=== PATIENT | male | born 1960 | race Caucasian/White ===

== ENCOUNTER → 2017-07-27 | Outpatient (CLI) | payer MEDICARE, MEDICAID ==
[~2017-07-27] MED LIST: CYMBALTA30 MG PO; LEVEMIR SUBQ; METHADONE HCL 110 M1 PO; NOVOLOG100 UNIT/1 SUBQ; OXYCODONE HCL15 MG PO; OXYCONTIN10 M1 PO; SPIRIVA18 MCG INH; TRESIBA FL100 UNIT/1 SUBQ; VALIUM5 MG PO; VENTOLIN HFA 1818 GM INH; VOLTAREN GEL 1100 G2 TOP
--- NOTE | 2017-07-29 09:35 | PAINCON ---
[address] [address] PAIN MANAGEMENT CONSULTATION Name: KIP GAITAN Room: [facility].#: [id number] Admission: 07/27/17 Attend Phys: Amie Calhoun Discharge: Date of : 58 Report #: [id number] THIS REPORT FOR: //name// CC: Iris Gr HISTORY OF PRESENT ILLNESS: The patient is a 56-year-old gentleman being treated for chronic abdominal pain requiring high risk complex medication management, history of lumbar radiculopathy, DJD right shoulder. Last seen in pain clinic on 06/01/2017, continued on methadone 10 mg q.i.d. and Voltaren gel topically for the right shoulder. Last urine drug screen on 01/19/2017 was positive for prescribed medications. He returns to pain clinic today. He continues to smoke and was counseled regarding same. BMI was below 20 at last visit (19.7). He has increased weight a little bit, BMI is now up to 20.1 (5 feet 8 inches, 130 pounds). Blood pressure is 99/62, pulse 93, respirations 18. Subjective pain score is 8 on a VAS, seems to be getting little bit worse, two discrete pains are right shoulder and left hip. Abdominal pain is unchanged. He uses a cane in his right hand, seems to have ongoing right shoulder and new diagnosis of recurrent left radicular pain. He has had back pain since 1979. PHYSICAL EXAMINATION: Shows positive straight leg raise on the left with decreased left leg extension and flexion strength. Right shoulder shows pain in the anterior aspect of the shoulder, range of motion both active and passive increases pain. Voluntary range of motion is limited. Strength is about 3-4/5, little stronger on the left side. We reviewed the fact that opiate medications are being used to provide analgesia adequate to support activities of daily living, not attempting to achieve a specific pain score on the 0-10 Visual Analog Scale. The current opiate medications are providing sufficient analgesia to allow the patient to participate in activities of daily living. The patient is not exhibiting any aberrant behavior suggestive of drug diversion. The patient is not having any adverse reactions to medications. The patient is not suffering from daytime somnolence or mental acuity changes. The patient is managing opiate-induced constipation with appropriate dhde-sxw-plccxid agents and dietary considerations. The patient was counseled on concern for caution with operating a motor vehicle while using opiate medications. A physical exam was performed and the patient's functional status was evaluated. All patients with back pain were advised against the bed rest greater than 4 days and were advised to return to normal activities. Pain score assessment was noted and the treatment plan was reviewed with the patient. All current medications, both prescribed and OTC were reviewed [place] [address] PAIN MANAGEMENT CONSULTATION Name: KIP GAITAN Room: [facility]#: [id number] Admission: 07/27/17 Attend Phys: Amie Calhoun Discharge: Date of : 58 Report #: [id number] electronic medical record. Tobacco screening was accomplished and smoking cessation was advised when indicated. BMI was noted and diet/exercise modification was recommended for all patients following outside normal parameters. I reviewed with the patient today their responsibilities to safeguard prescription medications, reviewed their responsibility to utilize medications only as prescribed by the physician. They are to seek and receive pain medications only from 1 physician group ( [facility]). They are to use 1 pharmacy and keep the clinic informed if they change pharmacies. Their responsibilities include making followup visits in a timely fashion and to avoid abrupt discontinuation of medication usage. Their responsibilities further include bringing their medications (bottles from the pharmacy with residual pills) to the visit for possible confirmation of pill counts and the patient understands it is their responsibility to submit to random drug screens to ensure both that the medications prescribed are present, and that no other controlled substances are present. All prescriptions provided today were generated electronically. ASSESSMENT: Chronic abdominal pain requiring high risk complex medication management. RECOMMENDATION: 1. Continue methadone 10 mg 4 times a day. Last urine drug screen on 01/19/2017 was positive for prescribed medication. Continue Voltaren gel topically for right shoulder. 2. X-ray of right shoulder today. 3. Symptomatic lumbar radiculopathy RECOMMENDATION: Lumbar epidural injection under fluoroscopy today. PROCEDURE: Lumbar epidural injection under fluoroscopy. PROCEDURE NOTE: After both written and informed consent to include risk of spinal cord damage, increased pain, weakness and dural puncture, the patient was taken to the fluoroscopy suite, placed in the prone position. After sterile prep and drape, a skin wheal with lidocaine was raised. A 22-gauge epidural Tuohy needle was inserted in the midline at L5-S1 with good loss to resistance. Negative aspiration for cerebrospinal fluid or blood was noted. Then 1 mL of Omnipaque under biplanar fluoroscopy showed good spread within the epidural space. This was followed with 80 mg of triamcinolone plus 1 mL of 1.5% preservative-free Xylocaine, 0.5 mL Xylocaine was [place] [address] PAIN MANAGEMENT CONSULTATION Name: KIP GAITAN Room: [facility]#: [id number] Admission: 07/27/17 Attend Phys: Amie Calhoun Discharge: Date of : 58 Report #: [id number] needle; it was removed. The patient was monitored for an appropriate period of time and discharged in good and stable condition. <ELECTRONICALLY SIGNED> By: Lance Gr DO 07/29/17 0935 [id number] [id number] Gr DO /nt
== END ==
LOC: M.PC 03:31 → M.RAD 03:31 → M.PC 09:50
DX: M54.16 Radiculopathy, lumbar region (principal); G89.29 Other chronic pain; R10.9 Unspecified abdominal pain; M19.011 Primary osteoarthritis, right shoulder; Z79.891 Long term (current) use of opiate analgesic; Z79.4 Long term (current) use of insulin

== ENCOUNTER → 2017-09-21 | Outpatient (CLI) | payer MEDICARE, MEDICAID ==
--- NOTE | 2017-09-26 07:21 | PAINCON ---
[facility] [address] [place] [address] PAIN MANAGEMENT CONSULTATION Name: KIP GAITAN [id number] Admission: 09/21/17 Attend Phys: Amie Calhoun Discharge: Date of : 58 Report #: [id number] THIS REPORT FOR: //name// CC: Iris Gr The patient is a 57-year-old gentleman typically treated for chronic abdominal pain, chronic pain syndrome requiring high risk complex medication management. Comorbidity includes DJD of right shoulder and lumbar radicular symptoms. The patient was last seen in the pain clinic 07/27/2017 and continued on methadone 10 mg q.i.d. The patient returns to the pain clinic today. The patient notes pain in the right shoulder continues somewhat, I did get an x-ray which was accomplished on 07/27/2017 and fortunately shows no significant osseous abnormality. Also has some lumbar radicular pain. Notes he has poor balance. He occasionally falls. We strongly encouraged the patient to use his cane on a more regular basis and in fact with poor balance and the patient falling despite using a cane, today I did prescribe for the patient a walker with a seat (rollator). The patient notes he can only walk about 20-25 feet before he has to sit down. He continued to smoke and was counseled regarding the same. PHYSICAL EXAMINATION: Does show significant weakness in the left leg, left anterior dorsalis (dorsiflexion) is about 2/5, all other muscles on the left side about 3/5 and right leg is slightly stronger at 3-4/5. Grossly positive straight leg raise at 30 degrees on the left. Pain with passive rotation of the hips bilaterally. Patellar and Achilles reflexes are diminished, but symmetric. Physical exam otherwise shows a cachectic 57-year-old gentleman, BMI is 19.9 kilograms per meter squared. Blood pressure 87/58, pulse 96 and respirations 16. Cranial nerves 2-12 are grossly intact. Pupils are pinpoint. Extraocular muscles are intact. No significant nystagmus is noted. Again moves cautiously. Gait is moderately antalgic. Diffuse tenderness across the back. No discrete trigger points are noted. Subjective pain score is 9 on a VAS. We reviewed the fact that opiate medications are being used to provide analgesia adequate to support activities of daily living, not attempting to achieve a specific pain score on the 0-10 Visual Analog Scale. The current opiate medications are providing sufficient analgesia to allow the patient to participate in activities of daily living. The patient is not exhibiting any aberrant behavior suggestive of drug diversion. The patient is not having any adverse reactions to medications. The patient is not suffering from daytime somnolence or mental acuity changes. The patient is managing opiate-induced constipation with appropriate tfwt-hwi-crdlckc agents and dietary considerations. The patient was counseled on concern for caution with operating a motor vehicle while using opiate medications. A physical exam was performed and the patient's [place] [address] PAIN MANAGEMENT CONSULTATION Name: KIP GAITAN Room: [facility]#: [id number] Admission: 09/21/17 Attend Phys: Amie Calhoun Discharge: Date of : 58 Report #: [id number] All patients with back pain were advised against the bed rest greater than 4 days and were advised to return to normal activities. Pain score assessment was noted and the treatment plan was reviewed with the patient. All current medications, both prescribed and OTC were reviewed and reconciled on the electronic medical record. Tobacco screening was accomplished and smoking cessation was advised when indicated. BMI was noted and diet/exercise modification was recommended for all patients following outside normal parameters. I reviewed with the patient today their responsibilities to safeguard prescription medications, reviewed their responsibility to utilize medications only as prescribed by the physician. They are to seek and receive pain medications only from 1 physician group ( [facility]). They are to use 1 pharmacy and keep the clinic informed if they change pharmacies. Their responsibilities include making followup visits in a timely fashion and to avoid abrupt discontinuation of medication usage. Their responsibilities further include bringing their medications (bottles from the pharmacy with residual pills) to the visit for possible confirmation of pill counts and the patient understands it is their responsibility to submit to random drug screens to ensure both that the medications prescribed are present, and that no other controlled substances are present. All prescriptions provided today were generated electronically. ASSESSMENT: Chronic axial back pain, chronic abdominal pain and lumbar radiculopathy requiring high risk complex medication management. RECOMMENDATION: 1. Discussion with the patient today about therapeutic options and recommend continued physical activity as able and increased ambulation. Again as noted above, I have taken the liberty of writing for a walker for the patient's use given neurogenic claudication and general debility as well as poor balance issues. 2. Continue baseline narcotic unchanged. 3. Nicotine cessation reviewed. 4. Opiate risk assessment noted, functional assessment reviewed. The patient's score is relatively low noting 15/70. He continues to be optimistic, but again he is showing some failing health. 5. Renew medication as noted above, we did renew the patient's opiate consent to treat contract today, it has been greater than a year since last contract was signed. Last random drug screen 01/19/2017 was positive for prescribed medications. Follow up in 2 months for reevaluation. <ELECTRONICALLY SIGNED> By: Lance Gr DO 09/26/17 0721 1321 [id number] Gr DO /nt
== END ==
LOC: M.PC 02:52
DX: G89.4 Chronic pain syndrome (principal); R10.9 Unspecified abdominal pain; M19.011 Primary osteoarthritis, right shoulder; M54.16 Radiculopathy, lumbar region; Z79.899 Other long term (current) drug therapy

== ENCOUNTER → 2017-11-16 | Outpatient (CLI) | payer MEDICARE, MEDICAID ==
--- NOTE | 2017-11-21 08:02 | PAINCON ---
[facility] [address] [place] [address] PAIN MANAGEMENT CONSULTATION Name: KIP GAITAN Room: [facility] [place].#: [id number] Admission: 11/16/17 Attend Phys: Amie Calhoun Discharge: Date of : 58 Report #: [id number] THIS REPORT FOR: //name// CC: Iris Gr The patient is a 57-year-old gentleman initially seen for chronic abdominal pain, chronic pain syndrome requiring complex medication management. Comorbidities include lumbar radiculopathy and right shoulder DJD requiring complex medication management. Last seen in pain clinic 09/21/2017. Counseled regarding smoking cessation and continued on methadone 10 mg 4 times a day. Last random drug screen 01/19/2017 is positive for prescribed medications. He returns to pain clinic today feeling that his medications are losing efficacy. States that the methadone at 40 mg a day (roughly 160 mEq of morphine a day) is only "relieving 35-40% of his pain." Rates his pain as 8 on a VAS. I had written for a rollator walker with chair in last visit. He did pick this up. States it is helpful, he can walk a little further, though curiously today he presents with only a cane. Physical exam shows a cachectic 57-year-old gentleman, BMI is 19.5 kilograms per meter squared. Blood pressure is low at 93/57, pulse 95, respiration is 16. Rises from the chair using armrest, modestly antalgic gait, diffuse tenderness across the low back, does not complain of much abdominal pain at this time. Lower extremity strength is diminished, but symmetric. Straight leg raise is negative. ASSESSMENT: Chronic axial back pain, history of lumbar radiculopathy and abdominal pain requiring complex medication management in a gentleman who continues to smoke and is showing opiate tolerance. RECOMMENDATIONS: Long discussion with the patient today about therapeutic option. I talked about opiate-induced hyperalgesia. Ultimately we elected to start weaning methadone over the next month. He is currently taking 40 mg a day. We will decrease to 30 mg (one 10 mg tablet 3 times a day) for 10 days, dropping then to 25 mg (one 10 mg tablet in the morning, half a tablet or 5 mg at noon and 10 mg at night for another 10 days). We will further drop to 20 mg a day, 10 mg in the morning and a half of a 10 mg tablet at noon and at bedtime for 10 days. I have taken the liberty of writing for 4-week release prescription, rotating back to methadone 10 mg 120 tablets, 1 tablet 3-4 times a day for pain. We will followup in 2 months to evaluate efficacy. We did evaluate efficacy of our opiate wean trial. We discussed smoking cessation at length. The patient asked for a prescription for Cymbalta, states that he had used this in the past and felt that it was helpful for quitting smoking. Unsure of the efficacy of Cymbalta and smoking, [place] [address] PAIN MANAGEMENT CONSULTATION Name: ARNIEKIP MAN Room: [facility]#: [id number] Admission: 11/16/17 Attend Phys: Amie Calhoun Discharge: Date of : 58 Report #: [id number] but I think it will be efficacious for his chronic pain and general anxiety. Started the patient on low dose Cymbalta 30 mg 1 a day, taken the liberty of writing for 30 tablets with 2 refills. Follow up in 2 months for reevaluation. Discharged in good and stable condition. <ELECTRONICALLY SIGNED> By: Lance Gr DO 11/21/17 0802 1453 1810Lance Gr DO /nt
== END ==
LOC: M.PC 01:03
DX: R10.9 Unspecified abdominal pain (principal); G89.29 Other chronic pain; M54.16 Radiculopathy, lumbar region; Z79.899 Other long term (current) drug therapy

== ENCOUNTER → 2018-01-18 | Outpatient (CLI) | payer MEDICARE, MEDICAID ==
--- NOTE | 2018-01-19 07:09 | PAINCON ---
[address] [address] PAIN MANAGEMENT CONSULTATION Name: ARNIEKIP Room: [facility].James.#: [id number] Admission: 01/18/18 Attend Phys: Amie Calhoun Discharge: Date of : 58 Report #: [id number] THIS REPORT FOR: //name// CC: Iris Gr The patient is a 57-year-old gentleman, prior seen for chronic abdominal pain, requiring complex medication management. Comorbidity includes nicotine habituation. Originally seen by myself on 07/28/2016. The patient was taking high dose oxycodone (OxyContin 60 mg b.i.d. with oxycodone 15 mg 4 a day, 180 mg of oxycodone roughly equivalent to 270 mg of morphine equivalent). We rotated to methadone and have tried to wean over time. He has been relatively stable on methadone 10 mg 4 a day where that this does equate to 160 mg of morphine equivalent, which does put him by definition in the high risk category, though he is down some 40% overall. He returns to pain clinic today, seen in the company of his who is supportive. We had a prolonged visit from 9:00 a.m. to 9:30, greater than 50% of 25+ minute visit was spent counseling the patient. He has weaned down from 2 packs of cigarettes a day to 1 pack a day, though I had instructed him at each visit over the years that he needs to quit smoking. He has been using Chantix now for 19 days. I tried weaning methadone at last visit from 4 a day to 3-1/2, down to 3 a day. The patient notes he had increased pain with decreased functional status. Rates his pain is 8-9 on a VAS at present, having been back to methadone 10 mg 4 a day for the past month. He does use Voltaren gel topically and Cymbalta 30 mg once a day. The patient notes the pain is in the right shoulder, left hip and low back. His abdominal pain is actually fairly benign at this time. He has had chronic right shoulder pain and some axial back pain over time. PHYSICAL EXAMINATION: Relatively unchanged as well, cachectic 57-year-old gentleman, 5 feet 8 inches, 124 pounds, BMI is 19.1 kilograms per meter squared. Blood pressure is 91/59, pulse 85, respiratory rate 16. Alert and oriented to person, place and time, judged to be a reasonable historian. Rises from chair using armrest. Gait is generally tandem, some diffuse axial tenderness, right shoulder pain with decreased range of motion and pain in the left hip with ambulation. We reviewed the fact that opiate medications are being used to provide analgesia adequate to support activities of daily living, not attempting to achieve a specific pain score on the 0-10 Visual Analog Scale. The current opiate medications are providing sufficient analgesia to allow the patient to participate in activities of daily living. The patient is not exhibiting any [facility] [address] [facility] [place] [address] PAIN MANAGEMENT CONSULTATION Name: KIP GAITAN Room: [facility]#: [id number] Admission: 01/18/18 Attend Phys: Amie Calhoun Discharge: Date of : 58 Report #: [id number] aberrant behavior suggestive of drug diversion. The patient is not having any adverse reactions to medications. The patient is not suffering from daytime somnolence or mental acuity changes. The patient is managing opiate-induced constipation with appropriate ujdi-unv-njrgugq agents and dietary considerations. The patient was counseled on concern for caution with operating a motor vehicle while using opiate medications. A physical exam was performed and the patient's functional status was evaluated. All patients with back pain were advised against the bed rest greater than 4 days and were advised to return to normal activities. Pain score assessment was noted and the treatment plan was reviewed with the patient. All current medications, both prescribed and OTC were reviewed and reconciled on the electronic medical record. Tobacco screening was accomplished and smoking cessation was advised when indicated. BMI was noted and diet/exercise modification was recommended for all patients following outside normal parameters. I reviewed with the patient today their responsibilities to safeguard prescription medications, reviewed their responsibility to utilize medications only as prescribed by the physician. They are to seek and receive pain medications only from 1 physician group ( [facility]). They are to use 1 pharmacy and keep the clinic informed if they change pharmacies. Their responsibilities include making followup visits in a timely fashion and to avoid abrupt discontinuation of medication usage. Their responsibilities further include bringing their medications (bottles from the pharmacy with residual pills) to the visit for possible confirmation of pill counts and the patient understands it is their responsibility to submit to random drug screens to ensure both that the medications prescribed are present, and that no other controlled substances are present. All prescriptions provided today were generated electronically. ASSESSMENT: Chronic axial back pain, right shoulder osteoarthritis, abdominal pain requiring complex medication management in a patient with nicotine habituation. RECOMMENDATIONS: I discussed with the patient today that I will be leaving the practice area. He will need to find a new treating physician. Suggest he contact his primary care physician, Dr. Iris Cuevas about referral for another provider. He lives in [place], [place] and [facility] is close to him and he believes that there is a pain clinic physician there. If he cannot find another physician, suggest he try [facility] or [facility]. I have taken the liberty of writing for 2 months of current medication, reverting back to methadone 10 mg 4 a day. We will have the patient follow up [facility] [address] [facility] [address] PAIN MANAGEMENT CONSULTATION Name: KIP GAITAN Room: [facility].#: [id number] Admission: 01/18/18 Attend Phys: Amie Calhoun Discharge: Date of : 58 Report #: [id number] Cuevas for referral for another pain provider. Discharged in good and stable condition. <ELECTRONICALLY SIGNED> By: Lance Gr DO 01/19/18 0709 1149 1546Lance Gr DO /nt
== END ==
LOC: M.PC 01-11 04:07
DX: M19.011 Primary osteoarthritis, right shoulder (principal); G89.29 Other chronic pain; M54.5 Low back pain; R10.9 Unspecified abdominal pain; F17.200 Nicotine dependence, unspecified, uncomplicated; Z79.899 Other long term (current) drug therapy

== ENCOUNTER → 2018-03-14 | Outpatient (CLI) | payer MEDICARE, MEDICAID | LOC: M.MRI 08:06 | DX: M75.101 Unspecified rotator cuff tear or rupture of right shoulder, not specified as traumatic (principal); M75.21 Bicipital tendinitis, right shoulder; M25.411 Effusion, right shoulder ==

== ENCOUNTER 2018-06-25 02:05 | Inpatient (IN) | payer MEDICARE, MEDICAID ==
[~2018-06-25] VITALS: Ht 172.7 cm; Wt 61.7 kg
[~2018-06-25 02:05] MED LIST changes: -SPIRIVA18 MCG INH; -TRESIBA FL100 UNIT/1 SUBQ
[2018-06-25 02:30] VITALS: BP 78/56
[2018-06-25 02:34] LABS: ABSOLUTE EOSINOPHILS 0.4 thou/uL (0.0-0.7); ABSOLUTE MONOCYTES 1.3 thou/uL (0.0-1.2); ABSOLUTE NEUTROPHILS 9.3 thou/uL (1.6-8.1); BASOPHILS 0.2 %; EOSINOPHILS 2.7 %; HEMATOCRIT 44.3 % (42.0-52.0); HEMOGLOBIN 14.7 gm/dL (14.0-18.0); LYMPHOCYTES 15.2 %; MCH 30.5 pg (26.0-34.0); MCHC 33.1 g/dL (28.0-37.0); MONOCYTES 9.8 %; MPV 8.6 fl. (7.2-11.1); NUCLEATED RBCS 0 /100WBC; PLATELET COUNT* 205 thou/uL (150-400); POLYS 72.1 %; RBC 4.81 mil/uL (4.50-6.00); WBC 12.9 thou/uL (4.0-11.0)
[2018-06-25 02:38] LABS: ANION GAP 7 mmol/L (7-16); BUN 6 mg/dL (7-18); CALCIUM 8.6 mg/dL (8.5-10.1); CHLORIDE 105 mmol/L (98-107); CO2 28 mmol/L (21-32); CREATININE 0.7 mg/dL (0.6-1.3); POTASSIUM 3.6 mmol/L (3.5-5.1); SODIUM 140 mmol/L (136-145)
[2018-06-25 02:41] LABS: PROTIME 10.7 Seconds (9.20-11.50)
[2018-06-25 02:46] LABS: GLUCOSE 35 mg/dL (70-99)
[2018-06-25 02:48] LABS: ALBUMIN 3.1 g/dL (3.4-5.0); ALKALINE PHOSPHATASE 74 U/L (46-116); LIPASE 63 U/L (73-393); NT-PRO BRAIN NAT PEPTIDE 67 pg/mL (<300); SGOT 13 U/L (15-37); SGPT 14 U/L (30-65); TOTAL BILIRUBIN 0.2 mg/dL (<0.1-1.0); TOTAL PROTEIN 6.3 g/dL (6.4-8.2); TROPONIN-I LEVEL <0.06 ng/mL (<0.06)
[2018-06-25 02:55] LABS: URINE BILIRUBIN NEGATIVE (Negative); URINE BLOOD NEGATIVE (Negative); URINE CLARITY CLEAR; URINE COLOR YELLOW; URINE GLUCOSE-RANDOM 1+ (Negative); URINE KETONES NEGATIVE (Negative); URINE LEUKOCYTES-REFLEX NEGATIVE (Negative); URINE NITRITE-REFLEX NEGATIVE (Negative); URINE PROTEIN NEGATIVE (Negative); URINE UROBILINOGEN 0.2 E.U./dl (0.2-1.0)
--- NOTE | 2018-06-25 04:15 | NUR ---
PATIENT STATED THAT HIS PAIN WAS NOT RELIEVED BY TYLENOL. HOWEVER, PATIENT IS NOW SLEEPING
[2018-06-25 07:36] LABS: AMP/METHAMP Negative (Negative); BARBITURATES Negative (Negative); BENZODIAZEPINES Negative (Negative); COCAINE Negative (Negative); METHADONE Negative (Negative); OPIATES Negative (Negative); PCP Negative (Negative); THC Negative (Negative)
[2018-06-25] MEDS ORDERED: TRESIBA FL100 UNIT/1 SUBQ (09:59)
--- NOTE | 2018-06-25 10:25 | EKG ---
[place] [address] ELECTROCARDIOGRAM REPORT Name: KIP GAITAN Room: [address] ADM IN M.R.#: [id number] Admission: 06/25/18 Attend Phys: Leo Russell, Discharge: Date of : 58 Report #: [id number] THIS REPORT FOR: //name// [facility] ED Test Date: 2018-06-25 Test Time: 02:15:23 Pat Name: KIP GAITAN Department: Room: 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
[2018-06-25 10:30] VITALS: BP 112/67
[2018-06-25 12:00] VITALS: BP 116/62
[2018-06-25 16:00] VITALS: BP 106/60
[2018-06-25] MEDS ORDERED: SPIRIVA18 MCG INH (17:55)
--- NOTE | 2018-06-25 18:06 | NUR ---
RECEIVED REPORT AND ASSUMED CARE AT 1030. PT TRANSPORTED FROM icu TO ROOM 201. VSS. CARDIAC MONITORING IN PLACE. ASSESSMENT COMPLETED CHARTED. PT DENIES ANY COMPLAINTS OF PAIN. HOURLY ROUNDING COMPLETED AND ALL NEEDS MET. NURSING WILL CONTINUE TO MONITOR
[2018-06-25 20:00] VITALS: BP 75/41
[2018-06-26] VITALS: BP 108/56
[2018-06-26 04:00] VITALS: BP 115/67
--- NOTE | 2018-06-26 04:25 | NUR ---
ASSUMED PT CARE AT 1930. NURSING ASSESSMENT COMPLETED AT START OF SHIFT.AT 1949 PT C/O "NOT FEELING WELL", PT DIAPHORETIC, SHALLOW BREATHING AND HAND TREMORS NOTED. BLOOD SUGAR 29. 1 AMP D50 ADMINISTERED, PT GIVEN BOX LUNCH TO EAT. BS 127 AT 2010. NO INSULIN ADMINISTERED THIS SHIFT. DR. TOM NOTIFIED OF EVENT, NO NEW ORDERES RECEIVED. HOURLY ROUNDING COMPLETED, CALL LIGHT WITHIN REACH. VOICED NO OTHER CONCERNS THIS SHIFT. DONATION SPECIALIST IN PLACE, TRACING SINUS RHYTHM.
[2018-06-26 06:13] LABS: ABSOLUTE EOSINOPHILS 0.4 thou/uL (0.0-0.7); ABSOLUTE LYMPHOCYTES 2.4 thou/uL (0.8-5.3); ABSOLUTE MONOCYTES 0.7 thou/uL (0.0-1.2); BASOPHILS 0.3 %; EOSINOPHILS 3.8 %; HEMATOCRIT 40.7 % (42.0-52.0); HEMOGLOBIN 13.7 gm/dL (14.0-18.0); LYMPHOCYTES 22.4 %; MCH 30.9 pg (26.0-34.0); MCHC 33.6 g/dL (28.0-37.0); MCV 91.9 fL (80.0-100.0); MONOCYTES 7.1 %; MPV 8.8 fl. (7.2-11.1); NUCLEATED RBCS 0 /100WBC; PLATELET COUNT* 164 thou/uL (150-400); POLYS 66.4 %; RBC 4.42 mil/uL (4.50-6.00); WBC 10.6 thou/uL (4.0-11.0)
[2018-06-26 06:22] LABS: CALCIUM 8.1 mg/dL (8.5-10.1); CREATININE 0.6 mg/dL (0.6-1.3); MAGNESIUM 1.9 mg/dL (1.8-2.4)
[2018-06-26 08:00] VITALS: BP 101/59
--- NOTE | 2018-06-26 11:19 | NUR ---
ASSUMED CARE OF PATIENT THIS AM AT 0730. PATIENT IS ALERT AND ORIENTED X 4. HE C/O SHOULDER PAIN THIS AM. HIS BLOOD SUGAR WAS 190 THIS AM. PATIENT REFUSING TO TAKE FULL DOSE IN INSULIN. PATIENT GIVEN 7 UNITS PER HIS REQUEST. WILL CONTINUE TO MONITOR BLOOD SUGARS. NO FALLS OR INJURY.
[2018-06-26 12:17] VITALS: BP 82/52
[2018-06-26] MEDS ORDERED: NOVOLOG100 UNIT/1 SUBQ (12:41)
[2018-06-26 14:32] VITALS: BP 82/52
[2018-06-26 14:48] VITALS: BP 82/52
[2018-06-26 23:06] LABS: GLYCOHEMOGLOBIN (HGB A1C) 9.5 % (4.8-5.6)
== END 2018-06-26 15:28 | disposition home or self-care (01) | DRG 638 ==
LOC: M.ERS 02:05 → M.2W 06:09 → M.TBA-ER 06:09 → M.ICU 06:31 → M.2W 10:25
PROVIDERS: Emergency Medicine; Family Medicine; ADMIT Family Medicine
DX: E11.649 Type 2 diabetes mellitus with hypoglycemia without coma (principal); E44.1 Mild protein-calorie malnutrition; F17.210 Nicotine dependence, cigarettes, uncomplicated; Z66 Do not resuscitate; J44.9 Chronic obstructive pulmonary disease, unspecified; Z79.4 Long term (current) use of insulin; Z85.038 Personal history of other malignant neoplasm of large intestine; Z85.46 Personal history of malignant neoplasm of prostate; Z71.6 Tobacco abuse counseling; Z79.899 Other long term (current) drug therapy; Z68.20 Body mass index [BMI] 20.0-20.9, adult

== ENCOUNTER 2019-03-25 20:14 | Emergency (ER) | payer MEDICARE, MEDICAID ==
[~2019-03-25] VITALS: Ht 172.7 cm; Wt 59.0 kg
[~2019-03-25 20:14] MED LIST changes: +SPIRIVA18 MCG INH; +TRESIBA FL100 UNIT/1 SUBQ
[2019-03-25] MEDS ORDERED: TRULICITY0.75 MG/0. SUBQ (20:24)
[2019-03-25] MEDS ORDERED: ALBUTEROL2.5 MG/0.1 INH (20:25)
[2019-03-25] MEDS ORDERED: NORCO 5-325 TA1 EAC1 PO (21:26)
[2019-03-25 21:40] VITALS: BP 102/65
== END 2019-03-25 21:43 | disposition home or self-care (01) ==
LOC: M.ERS 20:14
DX: S42.035A Nondisplaced fracture of lateral end of left clavicle, initial encounter for closed fracture (principal); J44.9 Chronic obstructive pulmonary disease, unspecified; E11.9 Type 2 diabetes mellitus without complications; F17.210 Nicotine dependence, cigarettes, uncomplicated; Z79.4 Long term (current) use of insulin; Z85.038 Personal history of other malignant neoplasm of large intestine; Z85.46 Personal history of malignant neoplasm of prostate; Z85.820 Personal history of malignant melanoma of skin; W01.0XXA Fall on same level from slipping, tripping and stumbling without subsequent striking against object, initial encounter; Y92.89 Other specified places as the place of occurrence of the external cause; Y93.89 Activity, other specified; Y99.8 Other external cause status

== ENCOUNTER → 2019-07-18 | Outpatient (CLI) | payer MEDICARE, MEDICAID ==
[~2019-07-18] MED LIST changes: +ALBUTEROL2.5 MG/0.1 INH; +NORCO 5-325 TA1 EAC1 PO; +TRULICITY0.75 MG/0. SUBQ
--- NOTE | 2019-07-18 16:36 | EXE ---
[place] [address] STRESS ECHOCARDIOGRAM Name: KIP GAITAN Room: [facility]#: [id number] Admission: 07/18/19 Attend Phys: Iris Cuevas DO Discharge: Date of : 58 Date of Service: 07/18/19 1636 Report #: [id number] THIS REPORT FOR: //name// APPROVED REPORT Study performed: 07/18/2019 15:09:28 Exam: Dobutamine Stress Echo Indication: Dyspnea Patient Location: Out-Patient Stress Nurse: Yulisa Nunn RN Supervising Physician: Jose Mckeon MD Ht: 5 ft 5 in HR: 90 bpm BP: 112/63 mmHg Medical History Cardiac Risk Factors: DM, Tobacco History (Current/Recent), FHX of CAD Procedure The patient underwent a Pharmacological Stress Test using Dobutamine. Blood pressure, heart rate, and EKG were monitored. An Echocardiogram was performed by software validation technician in four stages in quad fashion. At peak stress, four selected images were obtained and placed side by side with resting images for comparison. Stress Test Details Stress Test: Pharmacological Stress Test using Dobutamine. Reason for pharmacologic stress test: physical limitation. HR Resting HR: 90 bpm Max Heart Rate (APMHR): 161 bpm Max HR Achieved: 138 bpm Target HR (85% APMHR): 136 bpm % of APMHR: 85 Recovery HR: 98 bpm HR response to stress: Normal HR response to stress BP Resting BP: 112/63 mmHg Max BP: 154/66 mmHg Recovery BP: 125/61 mmHg BP response to stress: Normal blood pressure response [place] [address] STRESS ECHOCARDIOGRAM Name: ARNIEKIP LINCOLN Room: [facility]#: [id number] Admission: 07/18/19 Attend Phys: Iris Cuevas DO Discharge: Date of : 58 Date of Service: 07/18/19 1636 Report #: [id number] Resting ECG: Sinus Rhythm Stress ECG: Sinus Tachycardia ST Change: None Arrhythmia: None Recovery ECG: Sinus Rhythm Recovery ST Change: None Recovery Arrhythmia: None Clinical Reason for Termination: Completed protocol The patient exhibited excellent exercise tolerance. The patient tolerated ReoPro exercise without significant cardiac symptoms. Stress ECG Conclusion The baseline 12-lead EKG shows sinus rhythm without ST or T wave abnormality. EKGs obtained during and post exercise showed sinus rhythm and sinus tachycardia with no significant ST or T wave changes when compared to baseline. There were no stress-induced arrhythmias. Pre-Stress Echo The resting Echocardiogram showed normal left ventricular contractility with an estimated Ejection Fraction of about 55-60%. Normal wall motion in all segments on baseline images. Post-Stress Echo The stress Echocardiogram showed normal left ventricular contractility with an estimated Ejection Fraction of about >70%. Normal augmentation of wall motion in all segments on post stress images. Clinical No clinical or ECG evidence for ischemia. Conclusion Clinical Response: Non-ischemic Exercise Capacity: Superior Stress ECG Response: Non-ischemic Stress Echo Images: [place] [address] STRESS ECHOCARDIOGRAM Name: KIP GAITAN Room: [facility]#: [id number] Admission: 07/18/19 Attend Phys: Iris Cuevas DO Discharge: Date of : 58 Date of Service: 07/18/191635 Report #: [id number] Other Information Study Quality: Good <ELECTRONICALLY SIGNED> By: Chriss Roland MD, FACC 07/18/191635 35 35 Chriss Roland MD, FACC /INF
== END ==
LOC: M.CRD 14:27
DX: R06.02 Shortness of breath (principal); R07.9 Chest pain, unspecified; R06.00 Dyspnea, unspecified

== ENCOUNTER → 2019-09-13 | Outpatient (CLI) | payer MEDICARE, MEDICAID | LOC: M.MRI 13:11 | DX: S46.811A Strain of other muscles, fascia and tendons at shoulder and upper arm level, right arm, initial encounter (principal); M75.101 Unspecified rotator cuff tear or rupture of right shoulder, not specified as traumatic; M19.011 Primary osteoarthritis, right shoulder; M75.81 Other shoulder lesions, right shoulder; X58.XXXA Exposure to other specified factors, initial encounter; Y93.89 Activity, other specified; Y92.89 Other specified places as the place of occurrence of the external cause; Y99.8 Other external cause status ==

== ENCOUNTER → 2020-03-18 | Outpatient (CLI) | payer MEDICARE, MEDICAID | LOC: M.LAB 08:15 | PROVIDERS: ATTEND Orthopaedic Surgery | DX: Z01.818 Encounter for other preprocedural examination (principal); Z11.59 Encounter for screening for other viral diseases; M25.511 Pain in right shoulder ==

== ENCOUNTER → 2020-04-18 | Day surgery (SDC) | payer MEDICARE, MEDICAID ==
[~2020-04-18] MED LIST changes: +ASPIRIN325 PO; +ATORVASTATIN CA20 MG PO; +GABAPENTIN600 M1 PO; +JANUMET 50-1,01 EACH PO; +JARDIANCE25 MG PO; +OMEPRAZOLE40 MG PO; +PERCOCET 5-3251 EACH PO; +SYMBICORT80 MCG/4.1 INH; +TRULICITY1.5 MG/0.5 SUBQ
--- NOTE | ~2020-04-18 | OP ---
[address] [address] OPERATIVE REPORT Name: ARNIEKIP Room: [facility]#: [id number] Admission: 04/18/20 Attend Phys: Noel Jordan DO Discharge: Date of : 58 Report #: [id number] THIS REPORT FOR: //name// cc: Iris Cuevas Maggie M. DO ~ CC: Noel Cuevas DATE OF SERVICE: 04/18/2020 PREOPERATIVE DIAGNOSES: Right shoulder rotator cuff tear and biceps tendon tear. POSTOPERATIVE DIAGNOSES: 1. Right shoulder rotator cuff tear. 2. Biceps tendon tear. 3. Subacromial impingement. PROCEDURES PERFORMED: 1. Right shoulder arthroscopic surgery with extensive debridement of labrum cuff. 2. SAD. 3. Biceps tenotomy. 4. Mini open rotator cuff repair. SURGEON: Noel Jordan DO THEATRICAL TROUPER: Yehuda Prince DO and Yen Cates DO ANESTHESIA: General with block by Anesthesia. ESTIMATED BLOOD LOSS: 25 mL. SPECIMENS: None. COMPLICATIONS: None. DISPOSITION: Stable to PACU. ANTIBIOTICS: IV Ancef given preoperatively. INDICATIONS: The patient is a 59-year-old male who presented to the clinic complaining of right shoulder pain. His exam was concerning for rotator cuff tear. He underwent an MRI, which did confirm this as well as a longitudinal tear of the biceps tendon. He continued to have pain despite conservative measures. He was therefore recommended arthroscopic surgery. [facility] [address] [place] [address] OPERATIVE REPORT Name: KIP GAITAN Room: [facility]#: [id number] Admission: 04/18/20 Attend Phys: Noel Jordan DO Discharge: Date of : 58 Report #: [id number] ARTHROSCOPIC FINDINGS: Upon diagnostic arthroscopy, the glenohumeral joint was found to have a fairly large rotator cuff tear. There was fraying and partial thickness tearing of his biceps tendon. In the subacromial space, he was found to have significant amount of bursal tissue. Large full thickness rotator cuff tear again noted. Also, spurring on the undersurface of the acromion. DESCRIPTION OF PROCEDURE: The patient was seen in the preoperative area. Written consent was obtained. The operative sites marked. He was brought back down suite and placed supine on well-padded operative table. He was placed in the beach chair position utilizing the T-max table after induction of general anesthesia with an LMA. The right upper extremity was prepped and draped in normal sterile fashion. Surgical timeout was performed, correct site and procedure were verified. The patient is in agreement. Procedure began with creation of a standard posterior superior portal. Arthroscope was introduced into the joint. Findings as above. We then created a standard anterior superior portal under direct visualization. Arthroscopic scissors were introduced. The remainder of the biceps tendon was released. Shaver was introduced to debride the biceps stump as well as the fraying of the labrum. We shaved the undersurface of the cuff and identified a large full thickness rotator cuff tear involving the supraspinatus. This was debrided back to a good healthy tissue. At this point, our work was completed in the joint. We proceeded to the subacromial space. A standard lateral portal was created with direct visualization. Shaver was introduced. Significant amount of bursal tissue was resected in order to get better visualization. We reviewed cuff tear, it was mobile. We noted spurring on the undersurface of the acromion. The shaver was used to remove the spur. At this point, we decided to open. Small longitudinal incision was made, a couple of centimeters long. Sharp dissection through skin. Bovie down to the deltoid fascia. We used scissors to get into the subacromial space. Proper retractors were placed. We identified the cuff tear, it was mobile. We therefore began the repair with a punch of the medial row anchors just off the articular margin. The 4.75 SwiveLocks were inserted. We used a free needle to pass the suture limbs from the undersurface to the bursal side of the tendon. We cut sutures removed displaced. One limb from each medial row anchor was passed through the eyelet of the lateral row anchors. These were punched and the 4.75 SwiveLock was inserted with the appropriate tension on the cuff. At this point, the cuff tendon laid down quite nicely, had good coverage. His biceps tendon was quite diseased. Therefore, we decided not to do a tenodesis. The wound was thoroughly irrigated. Deltoid fascia was closed with an 0 Vicryl in a running fashion. Subcutaneous tissue closed with 2-0 Vicryl in inverted interrupted fashion. Skin was reapproximated with 3-0 running subcuticular Monocryl. Dermabond was applied. Portal sites were closed with a 3-0 nylon in simple interrupted fashion. Sterile dressings were applied including Xeroform, 4 x 4's, ABD, Medipore tape. The patient was placed in a slingshot immobilizer. He was awoken from anesthesia and transferred to PACU in stable condition. [place] [address] OPERATIVE REPORT Name: KIP GAITAN Room: [facility]#: [id number] Admission: 04/18/20 Attend Phys: Noel Jordan DO Discharge: Date of : 58 Report #: [id number] and sponge counts correct x 2. Dr. Jordan was present for all critical aspects of the case. By: [id number] Jordan DO /nt
[2020-04-18 08:47] LABS: HEMATOCRIT 47.5 % (42.0-52.0); HEMOGLOBIN 16.4 gm/dL (14.0-18.0); MCH 32.3 pg (26.0-34.0); MCHC 34.5 g/dL (28.0-37.0); MCV 93.7 fL (80.0-100.0); MPV 8.8 fl. (7.2-11.1); RBC 5.06 mil/uL (4.50-6.00); RDW-CV 13.7 % (10.5-14.5); WBC 13.3 thou/uL (4.0-11.0)
[2020-04-18 08:53] LABS: CALCIUM 8.6 mg/dL (8.5-10.1); CREATININE 0.8 mg/dL (0.6-1.3); POTASSIUM 3.7 mmol/L (3.5-5.1)
--- NOTE | 2020-04-18 16:39 | EKG ---
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 : 1960 Requested By: Noel Jordan Order Number: [id number] Kevin MD: Jose Mckeon Measurements Intervals [place] Rate: 85 P: 49 GA: 136 QRS: 79 QRSD: 87 T: 91 QT: 373 QTc: 444 Interpretive Statements Sinus rhythm Nonspecific T abnormalities, lateral leads Baseline wander in lead(s) I,III,aVL,V1,V2,V3,V4 Compared to ECG 06/25/2018 02:15:23 T-wave abnormality now present Electronically Signed On 04-18-2020 16:39:17 CDT by Jose Mckeon [email or web address] <ELECTRONICALLY SIGNED> By: Jose Mckeon MD, [facility] 04/18/20 1639 8 0839 Jose Mckeon MD, [facility] /EPI
== END | disposition home or self-care (01) ==
LOC: M.SUR 08:19
PROVIDERS: ATTEND Orthopaedic Surgery
DX: M75.101 Unspecified rotator cuff tear or rupture of right shoulder, not specified as traumatic (principal); M25.511 Pain in right shoulder; Z20.828 Contact with and (suspected) exposure to other viral communicable diseases; Z79.899 Other long term (current) drug therapy; Z98.890 Other specified postprocedural states